=== PATIENT | male | born 1990 | race Two or more races ===

== ENCOUNTER 2025-03-05 16:13 | Emergency (ER) | payer MEDICAID, SELFPAY ==
[2025-03-05 16:13] VITALS: BMI 27.1
[2025-03-05 16:50] VITALS: BP 122/70; PULSE 88; RESP 18; TEMP 36.6; O2SAT 100
--- NOTE | 2025-03-05 17:23 | PD.EDRME ---
Rapid Medical Screening Exam RME Arrival date/time: 03/05/25 16:13 35-year-old male with no known medical history presents to the emergency room with a chief complaint of a laceration to his right pinky finger that occurred 1 hour ago. I have greeted and performed a focused initial assessment of this patient. A comprehensive ED assessment and evaluation of the patient, analysis of all test results, and completion of the medical decision making process will be conducted by additional ED providers. Chief Complaint: Wound/Laceration Time Seen by Provider: 03/05/25 16:29 Vital signs: Vital Signs Temperature 98 F 03/05/25 16:50 Pulse Rate 88 03/05/25 16:50 Respiratory Rate 18 03/05/25 16:50 Blood Pressure 122/70 03/05/25 16:50 Pulse Oximetry (%) 100 03/05/25 16:50 Oxygen Delivery Method Room Air 03/05/25 16:50 Vital signs reviewed by provider: Yes
[2025-03-05] MEDS: DIPHTH,PERTUSS(ACELL),TET VAC 0.5 ML SYR- ADULT IMi (18:15)
[2025-03-05] MEDS: LIDOCAINE HCL 1% 20 ML VIAL INFL (18:15)
--- NOTE | 2025-03-05 18:34 | PD.EDWOUND ---
ED Wound/Laceration-RME/HPI General Chief Complaint: Wound/Laceration Stated Complaint: LAC FIFTH FINGER LACERATION Time Seen by Provider: 03/05/25 16:29 Arrival date/time: 03/05/25 16:13 RME / HPI RME / HPI narrative: 35-year-old male with no known medical history presents to the emergency room with a chief complaint of a laceration to his right pinky finger that occurred 1 hour ago. Incident happened with vacuum. Denies any other injury tetanus vaccination is unknown. Related Data Previous Rx's ?Medication ?Instructions ?Recorded erythromycin 5 mg/gram (0.5 %) eye 0.5 inch ophthalmic (eye) QID #3.5 12/29/19 ointment grams bacitracin 500 unit/gram topical 1 applic topical TID #28 grams 03/05/25 ointment ibuprofen 800 mg tablet 800 mg PO Q8H PRN pain #30 tabs 03/05/25 Allergies Allergy/AdvReac Type Severity Reaction Status Date / Time No Known Allergies Allergy Verified 03/05/25 16:13 Review of Systems Review of Systems Narrative Review of Systems: Review of system reviewed and within normal limits except mentioned in HPI ED Exam Narrative Physical exam: VITAL SIGNS: Reviewed. GENERAL APPEARANCE: Alert and interactive, follows commands, no acute distress, HEAD AND FACE: Non-traumatic. ENT: PERRL, pink conjunctivitis, eyelid no trauma, Mucous membrane moist. NECK: Supple, nontender, no nuchal rigidity. CHEST: No tenderness, no crepitus, no paradoxical movement, no retractions. LUNGS: Clear, well ventilated, symmetric, no rales, no wheezing, no ronchi, no stridor, good breath sounds bilaterally. HEART: Regular rate, regular rhythm, no murmur, no gallops. ABDOMEN: Soft, positive bowel sounds, nondistended, no guarding, nontender, no rebound, no masses, RECTAL: Deferred. GENITAL: Deferred. NEUROLOGICAL: Gross motor function intact sensory function intact, Appropriate for age. MUSCULOSKELETAL: low back nontender, full range of motion. EXTREMITIES: + 1 cm laceration, right pinky finger, palmar aspect, full range of motion. SKIN: Color pink, dry, no rash, no lacerations, no abrasions, no contusions. LYMPHATICS: Deferred. Course Quality Measures none Orders Category Date Time Status Set Up Suture Tray STAT Care 03/05/25 16:53 Active Wound Care NOW Care 03/05/25 16:53 Active Lidocaine 1% 20 ml [Xylocaine 1% 20 ML] Med 03/05/25 16:53 Discontinued 20 ml INFL X1 ONE TET,DIP/PERT AC (Adult)-Tdap [Boostrix Adult (Tdap) Med 03/05/25 16:53 Discontinued Vacc] 0.5 ml IMI .ONCE ONE Vital Signs Vital signs: Vital Signs Temperature 98 F 03/05/25 16:50 Pulse Rate 88 03/05/25 16:50 Respiratory Rate 18 03/05/25 16:50 Blood Pressure 122/70 03/05/25 16:50 Pulse Oximetry (%) 100 03/05/25 16:50 Oxygen Delivery Method Room Air 03/05/25 16:50 PROCEDURES: Laceration Laceration 1: Site: other (Right finger finger) Size (cm): 1 Description: linear Depth: simple, single layer Local Anesthetic: lidocaine 1% Amount of anesthesia used (mL): 3 Pre-repair: wound explored and irrigated extensively Skin layer closed with: nylon Suture size (cm): 5-0 Number of sutures: 4 Technique: simple, interrupted Wound / Laceration MDM Narrative MDM Narrative:: Repair and suturing was done by me see procedure notes. Patient received Boostrix. Patient tolerated the procedure well. Stable for discharge home Patient data External records reviewed:: None Clinical information provided by:: patient Social determinants that could affect healthcare access:: none Patient has the following chronic illnesses:: None How is presenting disease/condition affected by chronic disease/condition?: no chronic disease Evaluation data The following diagnostics were reviewed and interpreted by me:: other (specify) (None) Lab and/or radiology exams considered but not ordered:: None none Interpretation Summary: None none Medications / Prescriptions Medications or Prescriptions considered but not ordered:: None Medication administrations:: Medication Administration History Discontinued Medications Diphtheria/Tetanus/Acell Pertussis (Diphth,Pertuss(Acell),Tet Vac 0.5 Ml Syr- Adult) 0.5 ml IMi .ONCE ONE Stop: 03/05/25 16:54 Last Admin: 03/05/25 18:15 Dose: 0.5 ml Documented By: SHASHA Lidocaine HCl (Lidocaine Hcl 1% 20 Ml Vial) 20 ml INFL X1 ONE Stop: 03/05/25 16:54 Last Admin: 03/05/25 18:15 Dose: 20 ml Documented By: SHASHA Boostrix Consultations Consultation(s) initiated? (list below): No Diagnosis Wound Differential Diagnosis: laceration, abrasion and avulsion of skin Most likely diagnosis given after review of the tests above:: Finger laceration Admission Indicated Admission indicated?: not indicated Admission Request Was there a request for admission?: No Disposition Plan Disposition Plan: Discharge Discharge Attestation Discharge Attestation: The patient and all family members were given an opportunity to ask questions and understood the discharge instructions. Discharge instructions specifically effects, indications for sooner follow up or return to the emergency department, and the expected course of current diagnosis. Patient condition: Stable Discharge Plan Plan Patient Disposition: HOME (Self Care) Discharge Disposition comment: Stable Prescriptions/Referrals Prescriptions/Med Rec: New ibuprofen 800 mg tablet 800 mg PO Q8H PRN (Reason: pain) Qty: 30 0RF bacitracin 500 unit/gram ointment 1 applic topical TID Qty: 28 0RF No Action erythromycin 5 mg/gram (0.5 %) ointment 0.5 inch OPHTHALMIC QID Qty: 3.5 0RF Problem List Clinical Impression: Finger laceration Patient/Caregiver Discharge Instructions Discharge Activity: activity as tolerated Education Materials: ED Laceration: All Closures Additional Instructions: Thank you for the opportunity for serving you today. You are stable for discharged . You are advised to: Follow-up with your PCP in 1 to 2 days Return to ED for worsening of symptoms Increase oral fluids Take medication as prescribed Daily dressing with triple antibiotic For removal of sutures in 7 to 10 days Print Language: Upper Sorbian Stand Alone Forms: Maru Award Info., Patient Portal Info Letter BORIS/JOAN Supervising Physician BORIS/JOAN Supervising Physician: MD Madai
== END 2025-03-05 18:55 | disposition home or self-care (01) ==
LOC: SERX 19:15
PROVIDERS: Emergency Provider Emergency Medicine
DX: S61.216A Laceration without foreign body of right little finger without damage to nail, initial encounter (principal); W45.8XXA Other foreign body or object entering through skin, initial encounter; Z23 Encounter for immunization
CPT/HCPCS: 12001; 90471; 90715; 99284; J3490